=== PATIENT | female | born 1980 | race Hispanic/Latino ===

== ENCOUNTER → 2018-05-12 | Outpatient (CLI) | payer OTHER | END | disposition home or self-care (01) | LOC: OIH 08:22 | PROVIDERS: ATTEND Family Medicine | DX: R20.2 Paresthesia of skin (principal) | CPT/HCPCS: 72050 ==

== ENCOUNTER → 2019-01-11 | Outpatient (CLI) | payer OTHER | END | disposition home or self-care (01) | LOC: OIH 09:46 | PROVIDERS: ATTEND Neuromusculoskeletal Medicine & OMM | DX: M54.12 Radiculopathy, cervical region (principal) | CPT/HCPCS: 72050 ==

== ENCOUNTER → 2020-08-07 | Outpatient (CLI) | payer BC ==
[~2020-08-07] MED LIST: CLON1TAB12 PO; LEVO75TA10 PO; LISD50CA PO; TIZA2CAP9 PO
== END | disposition home or self-care (01) ==
LOC: OIH 08:10
PROVIDERS: ATTEND Neuromusculoskeletal Medicine & OMM
DX: M47.22 Other spondylosis with radiculopathy, cervical region (principal); M48.02 Spinal stenosis, cervical region
CPT/HCPCS: 72040; 72114

== ENCOUNTER → 2020-09-04 | Outpatient (CLI) | payer BC | END | disposition home or self-care (01) | LOC: OIH 15:02 | PROVIDERS: ATTEND Internal Medicine | DX: M19.90 Unspecified osteoarthritis, unspecified site (principal) | CPT/HCPCS: 73630 ==

== ENCOUNTER 2022-07-18 08:36 | Emergency (ER) | payer OTHER, BC ==
[~2022-07-18] VITALS: Ht 165.1 cm; Wt 79.8 kg
[2022-07-18] MEDS ORDERED: CYCLOBENZAPRINE HCL 10 MG TABLET PO ONE (09:00)
[2022-07-18] MEDS ORDERED: KETOROLAC 30MG VIAL (30MG/ML) IVP ONE (09:00)
[2022-07-18 09:03] LABS: BASOPHILS % (AUTO) 1.6 % (0.0-5.0); EOSINOPHILS % (AUTO) 2.3 % (0.0-8.0); HEMATOCRIT 39.9 % (36-48); LYMPHOCYTES % (AUTO) 30.5 % (21.0-51.0); MEAN CORPUSCULAR HEMOGLOBIN 32.3 pg (27.0-33.0); MEAN CORPUSCULAR HGB CONC 34.6 g/dL (32.0-36.0); MEAN CORPUSCULAR VOLUME 93.4 fL (79-99); MONOCYTES % (AUTO) 9.4 % (3.0-13.0); NEUTROPHILS % (AUTO) 55.9 % (40.0-77.0); PLATELET COUNT (AUTO) 341 K/uL (130-400); RED BLOOD CELL COUNT(AUTO) 4.27 MIL/uL (4.00-5.50); RED CELL DISTRIBUTION WIDTH 12.8 % (11.0-15.5); WHITE BLOOD COUNT (AUTO) 3.8 K/uL (4.8-10.8)
[2022-07-18 09:15] LABS: CREATININE 0.7 mg/dL (0.5-1.5); POTASSIUM 4.2 mmol/L (3.5-5.1)
[2022-07-18 09:19] LABS: ALBUMIN 3.7 g/dL (3.5-5.0); TOTAL PROTEIN, SERUM 8.1 g/dL (6.0-8.3)
[2022-07-18] MEDS ORDERED: IOHEXOL 350 MG/ML 100ML INFUS..BTL IV ONE (09:58)
[2022-07-18 10:29] LABS: APPEARANCE,URINE CLEAR (CLEAR); BILIRUBIN,URINE NEGATIVE (NEGATIVE); COLOR,URINE COLORLESS (YELLOW); GLUCOSE, URINE (UA) NEGATIVE (NEGATIVE); KETONES,URINE NEGATIVE (NEGATIVE); LEUKOCYTE ESTERASE ,URINE NEGATIVE Leu/uL (NEGATIVE); NITRATE,URINE NEGATIVE (NEGATIVE); OCCULT BLOOD,URINE MODERATE (NEGATIVE); PROTEIN,URINE NEGATIVE (NEGATIVE); UROBILINOGEN,URINE 0.2 mg/dL (0.2-1.0)
[2022-07-18 10:41] LABS: MUCUS,URINE RARE LPF (None Seen); RBC,URINE 0-1 /HPF (0-1); SQUAMOUS EPITHELIAL CELL,UR RARE /HPF (0-2)
[2022-07-18] MEDS ORDERED: MORPHINE 4 MG SYG IM SCH (11:00)
[2022-07-18] MEDS ORDERED: GABA300C PO (11:43)
[2022-07-18] MEDS ORDERED: IBUP-1493 PO (11:43)
[2022-07-18 12:04] VITALS: BP 132/89
== END 2022-07-18 12:13 | disposition home or self-care (01) ==
LOC: EDH 08:36
DX: S30.0XXA Contusion of lower back and pelvis, initial encounter (principal); E03.9 Hypothyroidism, unspecified; G89.29 Other chronic pain; Z79.899 Other long term (current) drug therapy; V49.59XA Passenger injured in collision with other motor vehicles in traffic accident, initial encounter; Y93.89 Activity, other specified; Y92.413 State road as the place of occurrence of the external cause; Y99.8 Other external cause status
CPT/HCPCS: 99285; 70450; 96374; 80053; 84703; 85025; 81001; 36415; 72125; 71260; 74177; 96372; J2270; J1885; Q9967

== ENCOUNTER 2023-03-25 20:56 | Inpatient (IN) | payer BC ==
[~2023-03-25] VITALS: Ht 165.1 cm; Wt 80.7 kg
[~2023-03-25 20:56] MED LIST changes: +GABA300C PO; +IBUP-1493 PO
[2023-03-25 21:30] LABS: BASOPHILS % (AUTO) 0.8 % (0.0-5.0); EOSINOPHILS % (AUTO) 1.9 % (0.0-8.0); HEMATOCRIT 38.6 % (36-48); LYMPHOCYTES % (AUTO) 31.6 % (21.0-51.0); MEAN CORPUSCULAR HEMOGLOBIN 31.5 pg (27.0-33.0); MEAN CORPUSCULAR HGB CONC 33.9 g/dL (32.0-36.0); MEAN CORPUSCULAR VOLUME 92.8 fL (79-99); MONOCYTES % (AUTO) 7.2 % (3.0-13.0); NEUTROPHILS % (AUTO) 58.4 % (40.0-77.0); PLATELET COUNT (AUTO) 368 K/uL (130-400); RED BLOOD CELL COUNT(AUTO) 4.16 MIL/uL (4.00-5.50); RED CELL DISTRIBUTION WIDTH 12.6 % (11.0-15.5); WHITE BLOOD COUNT (AUTO) 7.5 K/uL (4.8-10.8)
[2023-03-25] MEDS ORDERED: ONDANSETRON 4MG INJ IVP ONE (21:30)
[2023-03-25] MEDS ORDERED: MORPHINE 2 MG SYG IVP ONE (21:30)
[2023-03-25 21:34] LABS: CREATININE 0.8 mg/dL (0.5-1.5); POTASSIUM 3.7 mmol/L (3.5-5.1)
[2023-03-25 21:39] LABS: ALBUMIN 3.4 g/dL (3.5-5.0); TOTAL PROTEIN, SERUM 7.2 g/dL (6.0-8.3)
[2023-03-25 22:26] LABS: INR 0.93 (0.85-1.15); PROTHROMBIN TIME 10.4 SEC (9.6-11.6)
[2023-03-25] MEDS ORDERED: ZOSYN 3.375GM +NS 50ML IVPB ONE (22:30)
[2023-03-25] MEDS ORDERED: MORPHINE 2 MG SYG IV PRN (23:00)
[2023-03-25] MEDS ORDERED: MORPHINE 4 MG SYG IV PRN (23:00)
[2023-03-25] MEDS ORDERED: ACETAMINOPHEN 325 MG TAB PO PRN ×2 (23:00)
[2023-03-25] MEDS: LACTATED RINGERS 1000ML 1,000 ML IV SCH (23:03)
[2023-03-25 23:23] LABS: APPEARANCE,URINE CLEAR (CLEAR); BILIRUBIN,URINE NEGATIVE (NEGATIVE); COLOR,URINE LIGHT-YELLOW (YELLOW); GLUCOSE, URINE (UA) NEGATIVE (NEGATIVE); KETONES,URINE NEGATIVE (NEGATIVE); LEUKOCYTE ESTERASE ,URINE NEGATIVE Leu/uL (NEGATIVE); NITRATE,URINE NEGATIVE (NEGATIVE); PH,URINE 6.5 (5.0-8.0); PROTEIN,URINE NEGATIVE (NEGATIVE)
[2023-03-25 23:25] LABS: HCG,QUALITATIVE URINE NEGATIVE (NEGATIVE)
[2023-03-25 23:28] LABS: BACTERIA,URINE RARE /HPF (None Seen); MUCUS,URINE RARE LPF (None Seen); SQUAMOUS EPITHELIAL CELL,UR FEW /HPF (0-2)
[2023-03-26] MEDS ORDERED: POTASSIUM CHLORIDE 20MEQ/100ML 100 ML IV PRN (00:30)
[2023-03-26] MEDS ORDERED: POTASSIUM CHLORIDE 10% ELIXIR 20 MEQ/15 ML UDCUP PO PRN (00:30)
[2023-03-26] MEDS ORDERED: MAGNESIUM 2GM PREMIX 50ML 50 ML IV PRN (00:30)
[2023-03-26] MEDS ORDERED: KCL 20 MEQ ERTAB PO PRN (00:30)
[2023-03-26] MEDS: ONDANSETRON 4MG INJ IV PRN ×2 (01:14→08:23)
[2023-03-26 04:54] LABS: BASOPHILS % (AUTO) 0.7 % (0.0-5.0); EOSINOPHILS % (AUTO) 0.3 % (0.0-8.0); HEMATOCRIT 39.3 % (36-48); LYMPHOCYTES % (AUTO) 15.4 % (21.0-51.0); MEAN CORPUSCULAR HEMOGLOBIN 31.9 pg (27.0-33.0); MEAN CORPUSCULAR HGB CONC 34.1 g/dL (32.0-36.0); MEAN CORPUSCULAR VOLUME 93.6 fL (79-99); MONOCYTES % (AUTO) 7.1 % (3.0-13.0); NEUTROPHILS % (AUTO) 76.2 % (40.0-77.0); PLATELET COUNT (AUTO) 305 K/uL (130-400); RED CELL DISTRIBUTION WIDTH 12.5 % (11.0-15.5); WHITE BLOOD COUNT (AUTO) 6.9 K/uL (4.8-10.8)
[2023-03-26 05:09] LABS: HEMOGLOBIN A1C 5.6 % (4.0-6.0)
[2023-03-26 05:13] LABS: CREATININE 0.6 mg/dL (0.5-1.5); INR 0.93 (0.85-1.15); MAGNESIUM 1.9 mg/dL (1.80-2.40); PHOSPHORUS 4.6 mg/dL (2.5-4.9); POTASSIUM 4.3 mmol/L (3.5-5.1); PROTHROMBIN TIME 10.7 SEC (9.6-11.6)
[2023-03-26 05:14] LABS: PARTIAL THROMBOPLASTIN TIME 24.2 SEC (26.3-35.5)
[2023-03-26] MEDS: FAMOTIDINE 20MG VIAL IV SCH ×2 (08:22→21:50)
[2023-03-26] MEDS: ENOXAPARIN SODIUM 40 MG/0.4 ML SYRINGE SQ SCH (08:23)
[2023-03-26 10:25] VITALS: BP 116/74; PULSE 66; RESP 20
[2023-03-26] MEDS ORDERED: ADAL1PEN SQ (10:36)
[2023-03-26] MEDS ORDERED: HYDR-3422 PO (10:36)
[2023-03-26 11:30] VITALS: BP 146/80; PULSE 67; RESP 20
[2023-03-26] MEDS: LACTATED RINGERS 1000ML 1,000 ML IV SCH ×2 (14:28→21:50)
[2023-03-26 16:33] VITALS: BP 139/90; PULSE 69; RESP 16
[2023-03-26 19:13] VITALS: BP 143/90; PULSE 68; RESP 18
[2023-03-26 20:00] VITALS: O2SAT 99
[2023-03-26 23:28] VITALS: BP 130/77; PULSE 61; RESP 18
[2023-03-27 03:15] VITALS: BP 120/73; PULSE 65; RESP 18
[2023-03-27] MEDS: LACTATED RINGERS 1000ML 1,000 ML IV SCH (04:41)
[2023-03-27 06:27] LABS: BASOPHILS % (AUTO) 0.9 % (0.0-5.0); EOSINOPHILS % (AUTO) 6.9 % (0.0-8.0); HEMATOCRIT 36.4 % (36-48); MEAN CORPUSCULAR HEMOGLOBIN 31.5 pg (27.0-33.0); MEAN CORPUSCULAR HGB CONC 33.8 g/dL (32.0-36.0); MEAN CORPUSCULAR VOLUME 93.1 fL (79-99); MONOCYTES % (AUTO) 7.3 % (3.0-13.0); NEUTROPHILS % (AUTO) 64.5 % (40.0-77.0); PLATELET COUNT (AUTO) 306 K/uL (130-400); RED BLOOD CELL COUNT(AUTO) 3.91 MIL/uL (4.00-5.50); RED CELL DISTRIBUTION WIDTH 12.7 % (11.0-15.5); WHITE BLOOD COUNT (AUTO) 4.5 K/uL (4.8-10.8)
[2023-03-27 06:53] LABS: ALBUMIN 2.8 g/dL (3.5-5.0); CREATININE 0.6 mg/dL (0.5-1.5); MAGNESIUM 1.6 mg/dL (1.80-2.40); PHOSPHORUS 3.3 mg/dL (2.5-4.9); TOTAL PROTEIN, SERUM 6.4 g/dL (6.0-8.3)
[2023-03-27 07:17] VITALS: BP 136/88; PULSE 62; RESP 20
[2023-03-27] MEDS: FAMOTIDINE 20MG VIAL IV SCH ×2 (09:03→20:33)
[2023-03-27] MEDS: ENOXAPARIN SODIUM 40 MG/0.4 ML SYRINGE SQ SCH (09:03)
[2023-03-27 11:48] VITALS: BP 126/79; PULSE 67; RESP 16
[2023-03-27 16:40] VITALS: BP 126/76; PULSE 75; RESP 20
[2023-03-27 19:19] VITALS: BP 132/78; PULSE 74; RESP 18
[2023-03-27 23:06] VITALS: BP 112/66; PULSE 78; RESP 18
[2023-03-28 03:21] VITALS: BP 119/76; PULSE 55; RESP 18
[2023-03-28 04:45] LABS: BASOPHILS % (AUTO) 1.6 % (0.0-5.0); EOSINOPHILS % (AUTO) 9.4 % (0.0-8.0); HEMATOCRIT 36.2 % (36-48); LYMPHOCYTES % (AUTO) 32.4 % (21.0-51.0); MEAN CORPUSCULAR HEMOGLOBIN 31.7 pg (27.0-33.0); MEAN CORPUSCULAR HGB CONC 33.1 g/dL (32.0-36.0); MEAN CORPUSCULAR VOLUME 95.8 fL (79-99); MONOCYTES % (AUTO) 12.1 % (3.0-13.0); NEUTROPHILS % (AUTO) 44.3 % (40.0-77.0); PLATELET COUNT (AUTO) 298 K/uL (130-400); RED BLOOD CELL COUNT(AUTO) 3.78 MIL/uL (4.00-5.50); RED CELL DISTRIBUTION WIDTH 12.6 % (11.0-15.5); WHITE BLOOD COUNT (AUTO) 4.5 K/uL (4.8-10.8)
[2023-03-28 05:11] LABS: ALBUMIN 2.7 g/dL (3.5-5.0); CREATININE 0.6 mg/dL (0.5-1.5); POTASSIUM 3.7 mmol/L (3.5-5.1); TOTAL PROTEIN, SERUM 6.5 g/dL (6.0-8.3)
[2023-03-28 07:37] VITALS: BP 122/69; PULSE 69; RESP 20
[2023-03-28] MEDS: FAMOTIDINE 20MG VIAL IV SCH (08:42)
[2023-03-28] MEDS: ENOXAPARIN SODIUM 40 MG/0.4 ML SYRINGE SQ SCH (08:43)
[2023-03-28 12:33] VITALS: BP 130/102; PULSE 82; RESP 16
== END 2023-03-28 14:30 | disposition home or self-care (01) | DRG 446 ==
LOC: EDH 20:56 → EDHIP 22:36 → WSH 03-26 10:25
PROVIDERS: ADMIT Internal Medicine; ATTEND Internal Medicine
DX: K80.20 Calculus of gallbladder without cholecystitis without obstruction (principal); K76.0 Fatty (change of) liver, not elsewhere classified; E11.65 Type 2 diabetes mellitus with hyperglycemia; Z20.822 Contact with and (suspected) exposure to COVID-19; E03.9 Hypothyroidism, unspecified; I10 Essential (primary) hypertension; K80.10 Calculus of gallbladder with chronic cholecystitis without obstruction; Z98.84 Bariatric surgery status
CPT/HCPCS: 36415; 71045; 74181; 76705; 78226; 80048; 80053; 81001; 81025; 82550; 83036; 83690; 83735; 83874; 84100; 84484; 85025; 85610; 85730; 86140; 86850; 86900; 86901; 87040; 87635; 93005; A9537; G0378; J1650; J2270; J2405; J2543; J3475; J3490; J7120; S8037

== ENCOUNTER 2023-04-24 06:23 | Day surgery (SDC) | payer BC ==
[2023-04-21 12:04] LABS: BASOPHILS # (AUTO) 0.05 K/uL (0.00-0.20); EOSINOPHILS # (AUTO) 0.09 K/uL (0.00-0.70); EOSINOPHILS % (AUTO) 1.8 % (0.0-8.0); HEMATOCRIT 39.2 % (36-48); IMMATURE GRANULOCYTE ABSOLUTE 0.01 K/uL (0-1); LYMPHOCYTES # (AUTO) 1.4 K/uL (1.0-4.8); LYMPHOCYTES % (AUTO) 28.2 % (21.0-51.0); MEAN CORPUSCULAR HEMOGLOBIN 31.2 pg (27.0-33.0); MEAN CORPUSCULAR HGB CONC 33.4 g/dL (32.0-36.0); MEAN CORPUSCULAR VOLUME 93.3 fL (79-99); MONOCYTES # (AUTO) 0.4 K/uL (0.1-1.0); MONOCYTES % (AUTO) 8.5 % (3.0-13.0); NEUTROPHILS % (AUTO) 60.3 % (40.0-77.0); PLATELET COUNT (AUTO) 386 K/uL (130-400); RED CELL DISTRIBUTION WIDTH 12.5 % (11.0-15.5); WHITE BLOOD COUNT (AUTO) 4.9 K/uL (4.8-10.8)
[2023-04-21 12:28] LABS: CREATININE 0.7 mg/dL (0.5-1.5); POTASSIUM 4.5 mmol/L (3.5-5.1)
[2023-04-21 12:59] VITALS: BP 144/74; PULSE 80; RESP 16
[2023-04-24] VITALS (19 sets, daily range): BP systolic 103–136; BP diastolic 59–81; PULSE 57–80; RESP 11–20
[~2023-04-24] VITALS: Ht 165.1 cm; Wt 80.4 kg
[~2023-04-24 06:23] MED LIST changes: +ADAL1PEN SQ; -CLON1TAB12 PO; -GABA300C PO; +HYDR-3422 PO; -IBUP-1493 PO; -LISD50CA PO; +LISD60CA PO; -TIZA2CAP9 PO
[2023-04-24] MEDS ORDERED: CEFAZOLIN SODIUM 2 GM VIAL ONE (06:50)
[2023-04-24] MEDS ORDERED: LACTATED RINGERS 1000ML 1,000 ML IV ONE (06:50)
[2023-04-24] MEDS ORDERED: FAMOTIDINE 20MG VIAL IV ONE (07:16)
[2023-04-24] MEDS ORDERED: HYDROMORPHONE 1 MG INJ ONE (07:16)
[2023-04-24] MEDS ORDERED: GLYCOPYRROLATE 1 MG/5 ML SYRINGE ONE (07:21)
[2023-04-24] MEDS ORDERED: PROPOFOL 10 MG/ML 20ML VIAL IV ONE ×3 (07:21→11:17)
[2023-04-24] MEDS ORDERED: ROCURONIUM 10MG/1ML SYR 10 MG/ML ML ONE (07:21)
[2023-04-24] MEDS ORDERED: LIDOCAINE PF 100MG/5ML (2%) SYRINGE 5ML ONE (07:21)
[2023-04-24] MEDS ORDERED: FENTANYL CITRATE PF 50 MCG/1 ML 2ML VIAL ONE (07:22)
[2023-04-24] MEDS ORDERED: PHENYLEPHRINE HCL 10 MG/ML 1ML VIAL IV ONE (07:24)
[2023-04-24] MEDS ORDERED: INDOCYANINE GREEN 25 MG VIAL IJ ONE (07:25)
[2023-04-24] MEDS ORDERED: BUPIVACAINE/PF 0.25% 30ML VIAL IJ ONE (07:36)
[2023-04-24] MEDS ORDERED: LIDOCAINE HCL 1% 20 ML VIAL ONE (07:36)
[2023-04-24] MEDS ORDERED: CEFAZOLIN SODIUM 2 GM VIAL IVPB ONE (08:46)
[2023-04-24] MEDS ORDERED: ONDANSETRON 4MG INJ ONE ×3 (09:30→11:53)
[2023-04-24] MEDS ORDERED: DiphenhydrAMINE HCL 50 MG/ML VIAL ONE (09:32)
[2023-04-24] MEDS ORDERED: NEOSTIGMINE 5MG/5ML SYR IV ONE (11:09)
[2023-04-24] MEDS ORDERED: SCOPOLAMINE HYDROBROMIDE 1 EACH ADH..PATCH TD ONE (11:53)
== END 2023-04-24 13:55 | disposition home or self-care (01) ==
LOC: DAH 06:23
PROVIDERS: ATTEND Student in an Organized Health Care Education/Training Program
DX: K80.10 Calculus of gallbladder with chronic cholecystitis without obstruction (principal); Z20.822 Contact with and (suspected) exposure to COVID-19; K82.8 Other specified diseases of gallbladder; Z98.51 Tubal ligation status; Z98.890 Other specified postprocedural states; Z98.84 Bariatric surgery status; Z98.891 History of uterine scar from previous surgery; Z79.899 Other long term (current) drug therapy; Z98.1 Arthrodesis status
CPT/HCPCS: 47562; S2900; 36415; 80048; 84703; 85025; 88304; J1170; J1200; J2001; J2371; J2405; J2704; J2710; J3010; J3490; J7030; J7120; A4215; A4221; A4222; A4223; A4600; A4663; A6207; A6260; C1769; G0168; J0690